=== PATIENT | female | born 1955 | race Asian ===

== ENCOUNTER → 2018-12-26 | Outpatient (CLI) | payer OTHER ==
[2018-12-26 09:54] LABS: BASOPHIL % 0.6 % (0-2); PLATELET COUNT 391 x10^3mcL (130-400)
[2018-12-26 09:56] LABS: BILIRUBIN DIRECT 0.05 mg/dL (0.0-0.2); BILIRUBIN TOTAL 0.2 mg/dL (0.20-1.00); CALCIUM 9.4 mg/dL (8.5-10.1); CARBON DIOXIDE 22.8 mmol/L (21-32); CHOLESTEROL/HDL RATIO 4.5; FREE T4 1.42 ng/dL (0.76-1.46); TOTAL PROTEIN, SERUM 7.9 g/dL (6.4-8.2)
[2018-12-26 09:57] LABS: RED CELL DISTRIBUTION WIDTH 15.1 % (11.5-14.5)
[2018-12-27 10:05] LABS: microalbumin:creatinine ratio 12.4 (0.0-30.0)
== END | disposition home or self-care (01) ==
LOC: LB 08:56
PROVIDERS: Internal Medicine
DX: Z00.00 Encounter for general adult medical examination without abnormal findings (principal)
CPT/HCPCS: 84439

== ENCOUNTER → 2019-02-01 | Outpatient (CLI) | payer OTHER | END | disposition home or self-care (01) | LOC: LB 10:15 | DX: M25.552 Pain in left hip (principal); M25.551 Pain in right hip; Z12.31 Encounter for screening mammogram for malignant neoplasm of breast | CPT/HCPCS: 77067 ==

== ENCOUNTER → 2019-08-29 | Outpatient (CLI) | payer OTHER ==
[2019-08-29 09:22] LABS: BASOPHIL % 0.6 % (0-2); PLATELET COUNT 343 x10^3mcL (130-400); RED CELL DISTRIBUTION WIDTH 13.7 % (11.5-14.5)
[2019-08-29 09:59] LABS: ALBUMIN 3.8 g/dL (3.4-5.0); ALKALINE PHOSPHATASE 113 U/L (46-116); ALT/SGPT 25 U/L (14-59); AST/SGOT 13 U/L (15-37); BILIRUBIN DIRECT 0.05 mg/dL (0.0-0.2); BILIRUBIN TOTAL 0.2 mg/dL (0.20-1.00); CALCIUM 8.4 mg/dL (8.5-10.1); CARBON DIOXIDE 22.6 mmol/L (21-32); CHLORIDE SERUM 104 mmol/L (98-107); CHOLESTEROL 156 mg/dL (<200); CHOLESTEROL/HDL RATIO 4.2; CREATININE SERUM 2.2 mg/dL (0.6-1.0); FREE T4 1.26 ng/dL (0.76-1.46); GFR1 24 mL/min; GLUCOSE SERUM 99 mg/dL (74-106); HDL CHOLESTEROL 37 mg/dL (40-60); POTASSIUM SERUM 3.8 mmol/L (3.5-5.1); SODIUM SERUM 138 mmol/L (136-145); TOTAL PROTEIN, SERUM 7.5 g/dL (6.4-8.2)
[2019-08-29 10:00] LABS: TRIGLYCERIDES 465 mg/dL (<150)
[2019-08-30 08:06] LABS: microalbumin:creatinine ratio 43.1 (0.0-30.0)
== END | disposition home or self-care (01) ==
LOC: LB 08:52
PROVIDERS: Internal Medicine
DX: Z00.00 Encounter for general adult medical examination without abnormal findings (principal)
CPT/HCPCS: 84439